=== PATIENT | male | born 1990 | race Caucasian/White ===

== ENCOUNTER 2016-11-01 10:26 | Emergency (ER) | payer OTHER ==
[~2016-11-01] VITALS: Ht 180.3 cm; Wt 90.7 kg
[2016-11-01 10:40] VITALS: BP 142/69
== END 2016-11-01 12:31 | disposition home or self-care (01) ==
LOC: ED 10:26
DX: S62.304A Unspecified fracture of fourth metacarpal bone, right hand, initial encounter for closed fracture (principal); R03.0 Elevated blood-pressure reading, without diagnosis of hypertension; W22.01XA Walked into wall, initial encounter; Y93.89 Activity, other specified; Y92.89 Other specified places as the place of occurrence of the external cause; Y99.8 Other external cause status
CPT/HCPCS: Q0092